=== PATIENT | female | born 1945 | race African-American/Black ===

== ENCOUNTER 2017-01-03 00:51 | Emergency (ER) | payer BC ==
[~2017-01-03] VITALS: Ht 167.6 cm; Wt 82.0 kg
[~2017-01-03 00:51] MED LIST: METROPROLOL; VICODIN
[2017-01-03 02:13] LABS: BASOPHILS % 0.5 % (0.0-2.0); EOSINOPHILS % 1.7 % (0.0-5.0); HEMATOCRIT. 37.9 % (36.0-48.0); MEAN CORPUSCULAR HEMOGLOBIN 31.6 pg (28.0-32.0); MEAN CORPUSCULAR VOLUME 92.3 fL (81.0-99.0); MEAN PLATELET VOLUME 7.8 fl (7.4-10.4); MONOCYTES % 11.6 % (2.0-8.0); NEUTROPHILS % 47.2 % (40.0-76.0); PLATELET 227 x1000/uL (130-400); RED CELL DISTRIBUTION WIDTH 13.2 % (11.6-14.6)
[2017-01-03 02:29] LABS: CARBON DIOXIDE 27 mEq/L (21-32); CHLORIDE 108 mEq/L (98-107); TROPONIN I < 0.02 ng/mL (0.00-0.04)
[2017-01-03 06:00] VITALS: BP 121/73
== END 2017-01-03 06:00 | disposition home or self-care (01) ==
LOC: ER 00:51
DX: R00.2 Palpitations (principal); N28.1 Cyst of kidney, acquired; Z90.710 Acquired absence of both cervix and uterus; Z98.890 Other specified postprocedural states
CPT/HCPCS: 36415; 71010; 74176; 80053; 84484; 85025; 93005; 99285; Z7610